=== PATIENT | female | born 1940 | race Two or more races ===

== ENCOUNTER 2024-04-02 12:02 | Emergency (ER) | payer OTHER ==
[~2024-04-02] VITALS: Ht 162.6 cm; Wt 65.0 kg
[2024-04-02 12:26] LABS: COVID AG,FIA SOURCE NASAL SWAB
[2024-04-02 12:50] LABS: SARS-COV2 (COVID) ANTIGEN,FIA Negative (Negative)
[2024-04-02 12:51] LABS: INFLUENZA TYPE A NEGATIVE FOR TYPE A (NEGATIVE); INFLUENZA TYPE B NEGATIVE FOR TYPE B (NEGATIVE)
[2024-04-02 15:23] VITALS: TEMP 97.8
[2024-04-02 15:49] LABS: BASOPHILS % (AUTO) 0.6 % (0.0-2.0); EOSINOPHILS % (AUTO) 0.1 % (1.0-6.0); HEMATOCRIT 40.8 % (36-46); HEMOGLOBIN 13.4 g/dL (12.0-16.0); LYMPHOCYTES # (AUTO) 1.2 K/uL (1.0-4.8); LYMPHOCYTES % (AUTO) 12.7 % (22.0-44.0); MEAN CORPUSCULAR HEMOGLOBIN 30.3 pg (26.0-34.0); MEAN CORPUSCULAR VOLUME 92 fL (80-100); MONOCYTES # (AUTO) 0.1 K/uL (0.1-1.0); MONOCYTES % (AUTO) 1.3 % (2.0-9.0); NEUTROPHILS # (AUTO) 7.9 K/uL (1.8-7.7); PLATELET COUNT (AUTO) 386 K/uL (150-450); RED BLOOD CELL COUNT(AUTO) 4.43 MIL/uL (4.00-5.20); RED CELL DISTRIBUTION WIDTH 14.4 % (11.5-14.5); WHITE BLOOD COUNT (AUTO) 9.2 K/uL (4.5-11.0)
[2024-04-02 15:51] LABS: NEUTROPHILS % (AUTO) 85.3 % (40.0-70.0)
[2024-04-02 15:57] LABS: CALCIUM, TOTAL 8.9 mg/dL (8.8-10.5); CREATININE 1.05 mg/dL (0.60-1.30); POTASSIUM 4.4 mmol/L (3.5-5.1)
[2024-04-02 16:06] LABS: TROPONIN I-HIGH SENSITIVITY 4 ng/L (<51)
[2024-04-02] MEDS ORDERED: GUAIFDM PO (17:40)
[2024-04-02] MEDS ORDERED: PRED-554 PO (17:40)
[2024-04-02 18:15] VITALS: BP 115/67; PULSE 65; RESP 18; O2SAT 94
== END 2024-04-02 18:39 | disposition home or self-care (01) ==
LOC: EMS 12:02
DX: J44.1 Chronic obstructive pulmonary disease with (acute) exacerbation (principal); Z20.822 Contact with and (suspected) exposure to COVID-19
CPT/HCPCS: 71045; 80048; 83880; 84484; 85025; 87804; 93005; 99285; 36415-L1; 36415-TC

== ENCOUNTER 2024-08-05 08:27 | Emergency (ER) | payer OTHER ==
[~2024-08-05] VITALS: Ht 152.4 cm; Wt 77.3 kg
[~2024-08-05 08:27] MED LIST: GUAIFDM PO; PRED-554 PO
[2024-08-05 08:28] VITALS: BP 170/102; PULSE 115; RESP 18; TEMP 98; O2SAT 96
[2024-08-05] MEDS: CloNIDine HCL 0.1 MG TABLET PO ONE (09:13)
[2024-08-05] MEDS: PHENYLEPHRINE HCL 1% 15 ML NASAL SPRAY NASAL ONE (09:13)
[2024-08-05] MEDS ORDERED: CEPH-558 PO (12:02)
== END 2024-08-05 12:30 | disposition home or self-care (01) ==
LOC: EMS 08:37
DX: R04.0 Epistaxis (principal); J44.9 Chronic obstructive pulmonary disease, unspecified; I10 Essential (primary) hypertension; K21.9 Gastro-esophageal reflux disease without esophagitis; Z79.52 Long term (current) use of systemic steroids
CPT/HCPCS: 99283